=== PATIENT | female | born 1985 | race Caucasian/White ===

== ENCOUNTER 2023-02-06 19:07 | Emergency (ER) | payer BC, SELFPAY ==
[2023-02-06 19:35] VITALS: BP 128/67; PULSE 95; RESP 16; TEMP 37.1; O2SAT 100; BMI 21.3
--- NOTE | 2023-02-06 20:45 | ED.WOUNDLAC ---
HPI - Wound/Laceration General Date Seen: 02/06/23 Chief Complaint: Laceration/Wound Stated Complaint: Finger Lac Time Seen by Provider: 02/06/23 19:20 Source: patient Mode of arrival: ambulatory Limitations: no limitations History of Present Illness HPI narrative: This very nice lady presents here with a laceration to her right thumb. Occurred when she was cooking, she noted blood initially, put some pressure on it but came in, she denies any numbness tingling or weakness associated with this and occurred approximately 20 minutes before being seen, she thinks her tetanus is up-to-date and indeed it is in 2019. Place: home Patient tetanus UTD: Yes Context: accidental Associated symptoms: none Treatments prior to arrival: bandage Related Data Home Medications Medication Instructions Recorded Confirmed No Known Home Medications 02/06/23 02/06/23 Allergies Allergy/AdvReac Type Severity Reaction Status Date / Time No Known Drug Allergies Allergy Verified 02/06/23 19:37 Review of Systems Status of ROS: Reports: 6 or more systems reviewed and unremarkable except as noted in History and below PFSH PFS Social History Smoking Status: Never smoker Second hand tobacco smoke exposure: No How often do you have a drink containing alcohol: never AUDIT-C Alcohol total score: 0 Non-prescribed substance use: denies use Exam Narrative: Exam Narrative: Patient has a small laceration to her right thumb, this of the laceration is approximately 5-6 mm on the distal pad surface and then comes around the top part of her nail bed. Is well-approximated, there is no evidence of any neurologic deficit, cap refill is normal, IP flexion is normal, Let is applied for approximately 40 minutes, I was able to clean this out quite nicely with Hibiclens, and alcohol, there is no bleeding, no evidence of foreign body, using sure decision making I discussed with the patient I use of glue verses use of sutures, she elected for glue which is what I would have done. We glued this area, I will use stack finger splint, to support this in the healing phase for the next 10 days. We discussed complications associated with this such as bleeding infection, and poor nail growth or different nail growth she is accepting of these. Const: Vital Signs, click to edit/add: Vital Signs - 24 hr 02/06/23 19:35 Temperature 98.7 F Pulse Rate [Left P ulse Oximeter] 95 Respiratory Rate 16 Blood Pressure [Le ft Upper Arm] 128/67 Pulse Oximetry 100 Oxygen Delivery Me thod Room Air Documenting provider has reviewed patient's vital signs: yes Course Vital Signs Vital signs: Initial Vital Signs Temperature 98.7 F 02/06/23 19:35 Temperature Source Temporal Artery Scan 02/06/23 19:35 Pulse Rate 95 02/06/23 19:35 Respiratory Rate 16 02/06/23 19:35 Blood Pressure 128/67 02/06/23 19:35 Blood Pressure Mean 87 02/06/23 19:35 Blood Pressure Position Sitting 02/06/23 19:35 Pulse Oximetry 100 02/06/23 19:35 Oxygen Delivery Method Room Air 02/06/23 19:35 Vital Signs Temperature 98.7 F 02/06/23 19:35 Pulse Rate 95 02/06/23 19:35 Respiratory Rate 16 02/06/23 19:35 Blood Pressure 128/67 02/06/23 19:35 Pulse Oximetry 100 02/06/23 19:35 Oxygen Delivery Method Room Air 02/06/23 19:35 Temperature 98.7 F 02/06/23 19:35 Pulse Rate 95 02/06/23 19:35 Respiratory Rate 16 02/06/23 19:35 Blood Pressure 128/67 02/06/23 19:35 Pulse Oximetry 100 02/06/23 19:35 Oxygen Delivery Method Room Air 02/06/23 19:35 Discharge Plan Discharge Clinical Impression: Laceration Patient Disposition: Home, Self-Care Condition: Improved Instructions: Finger Laceration (ED), Skin Adhesive Care (ED) Additional Instructions: Home rest instructions given for signs of infection, please return if these occur, I would use the splint for the next 10 days, the glue comes off by itself in 3-4 days, you may shower with the glue, and clean it, but just use the splint when you sleeper during the day. Return as needed. Prescriptions: No Action No Known Home Medications Follow Up/Referrals: Berenice Persaud PA-C [Primary Care Provider] - Stand Alone Forms: MyHealth Info Instructions
[2023-02-06 20:50] VITALS: BP 114/78; PULSE 84; RESP 16; TEMP 36.7; O2SAT 100
[2023-02-06 20:52] VITALS: BP 114/78; PULSE 84; RESP 16; TEMP 36.7
== END 2023-02-06 20:52 | disposition home or self-care (01) ==
PROVIDERS: Emergency Provider Family Medicine; PCP Physician Assistant Medical
DX: S61.011A Laceration without foreign body of right thumb without damage to nail, initial encounter (principal)
CPT/HCPCS: 99282; 99283